=== PATIENT | male | born 1955 | race Caucasian/White ===

== ENCOUNTER 2020-07-09 14:38 | Emergency (ER) | payer BC, SELFPAY ==
--- NOTE | ~2020-07-09 | XR_ITS ---
EXAMINATION: XR chest 1V portable 07/09/2020 15:18 INDICATION: Left-sided chest pain. Hypertension. PROCEDURE: AP portable chest COMPARISON: 08/26/2016 FINDINGS: The lungs are clear. The cardiomediastinal silhouette is within normal limits. There are no pleural effusions. There is no pneumothorax suspected. IMPRESSION: 1: NO ACUTE CARDIOPULMONARY DISEASE. Reviewed, dictated and finalized at location A.
[2020-07-09 15:02] VITALS: BP 195/104; PULSE 65; RESP 16; TEMP 36.9; O2SAT 98
[2020-07-09 15:04] VITALS: PULSE 66
--- NOTE | 2020-07-09 15:06 | ECG_ITS ---
Measurements Intervals Adm[place] Rate: 64 P: 55 [place]: 147 QRS: 11 QRSD: 94 T: 22 QT: 399 QTc: 412 Interpretive Statements SINUS RHYTHM POSSIBLE LEFT ATRIAL ENLARGEMENT DELAYED PRECORDIAL R/S TRANSITION BASELINE ARTIFACT- V5 BORDERLINE ECG Electronically Signed On 07-09-2020 16:11:40 CDT by Gato Jarquin D.O.
[2020-07-09 15:17] LABS: Basophils Percent Auto 0.7 % (0.2-1.2); Eosinophils Absolute Auto 0.2 K/mm3 (0-0.3); Hematocrit 40.9 % (42.0-52.0); Hemoglobin 13.7 g/dL (14.0-18.0); Immature Granulocyte Absolute 0.01 K/mm3 (0.00-0.031); Immature Granulocyte Percent A 0.2 % (0-0.5); Lymphocytes Absolute Auto 1.29 K/mm3 (0.9-3.2); Lymphocytes Percent Auto 30.9 % (18.3-44.2); Mean Corpuscular HGB Conc 33.5 g/dl (32-36); Mean Corpuscular Hemoglobin 30.6 pg (26-34); Mean Corpuscular Volume 91.3 fl (80-100); Mean Platelet Volume 9.7 fl (7.4-10.4); Monocytes Absolute Auto 0.4 K/mm3 (0.1-0.6); Monocytes Percent Auto 10.6 % (2.6-8.5); Neutrophils Absolute Auto 2.2 K/mm3 (1.3-6.7); Neutrophils Percent Auto 52.6 % (45.5-73.1); Platelet Count Result 200 k/mm3 (150-375); Red Blood Count 4.48 M/mm3 (4.6-6.20); Red Cell Distribution Width 12.9 % (11.5-14.5); White Blood Count 4.2 K/mm3 (4.5-10.0)
[2020-07-09 15:25] LABS: Prothrombin Time 12.7 Seconds (11.1-14.7)
[2020-07-09 15:28] LABS: Alanine Aminotransferase 26 U/L (4-50); Albumin Level 4.4 g/dL (3.5-5.1); Alkaline Phosphatase 43 U/L (38-126); Anion Gap 6 mmol/L (8-16); Aspartate Amino Transferase 36 U/L (17-59); Bilirubin,Total 1.1 mg/dL (0.2-1.3); Blood Urea Nitrogen 18 mg/dL (9-20); Carbon Dioxide 28 mmol/L (22-30); Chloride 104 mmol/L (98-107); D Dimer 0.27 ug/mL (<0.48); Estimated CRCL calculation 68 ml/min; Estimated Glomerular Filt Rate > 60; Glucose 101 mg/dL (75-110); Potassium 4.1 mmol/L (3.4-5.0); Sodium 138 mmol/L (137-145)
[2020-07-09 15:36] VITALS: BP 161/86; PULSE 56; RESP 15; O2SAT 97
[2020-07-09 15:39] LABS: NT Pro B Type Natriuretic Pept 108 PG/ML (5-100); Troponin I < 0.012 ng/mL (0.000-0.034)
--- NOTE | 2020-07-09 16:27 | ED.CHESTPAIN ---
HPI - Chest Pain General Chief Complaint: Chest Pain Stated Complaint: intermittent chest pain Time Seen by Provider: 07/09/20 14:48 Source: patient and family Mode of arrival: ambulatory Limitations: no limitations History of Present Illness HPI narrative: 64-year-old with history of hypertension here with complaints of having left-sided chest pain for past few hours. Patient states that he had a similar pain 4 days ago, has seen his primary doctor had a EKG in the office and was scheduled for stress test next week. Patient states that he was mowing the lawn this morning started having pain again in the left side of the chest which was nonradiating. He denies any nausea or vomiting or diaphoresis with the pain. Patient states that it is like a pressure in the left precordial area. MD complaint: chest pain Onset (ago): hour(s) (3) Prior episodes: Yes Onset: during exertion Pain location: left chest Pain radiation: none Severity: moderate Quality: heaviness Relieving factors: rest Exacerbating factors: exertion Treatment prior to arrival: none Risk Factors Coronary artery disease risk factors: hypertension Related Data Home Medications Medication Instructions Recorded Confirmed losartan 50 mg PO DAILY 07/09/20 Allergies Allergy/AdvReac Type Severity Reaction Status Date / Time morphine Allergy Nausea Verified 07/09/20 15:05 Review of Systems Constitutional: Constitutional: Reports as per HPI Eyes: Eyes: Reports no additional eye complaints ENT: Reports system reviewed and no additional complaints, except as documented Cardiovascular: Cardiovascular: Reports as per HPI Respiratory: Respiratory: Reports no additional respiratory complaints Gastrointestinal: Gastrointestinal: Reports no additional gastrointestinal complaints Musculoskeletal: Musculoskeletal: Reports no additional musculoskeletal complaints Neurologic: Reports system reviewed and no additional complaints, except as documented Endocrine: Endocrine: Reports no additional endocrine complaints PMFSH Social History Social History Gender identity (if verbalized by the patient): Male Exam Narrative: Exam Narrative: GENERAL: Well-appearing, well-nourished, and in no acute distress. HEAD: Normocephalic, atraumatic. EYES: PERRLA and EOMI. ENT: Nares clear, no rhinorrhea or epistaxis. Mucous membranes moist. NECK: Supple. CHEST: Clear to auscultation. No respiratory distress. HEART: Regular rate and rhythm. No murmur heard. Normal peripheral pulses. ABDOMEN: Soft, nontender, nondistended, normal active bowel sounds. EXTREMITIES: Normal range of motion. No edema. SKIN: Warm, dry, no rash. NEURO: No focal deficits. Alert and oriented x3. PSYCH: Normal mood and affect. Course Course Emergency Course: Patient presently has no chest pain, will give him aspirin I have reviewed labs with the patient as well as the EKG with a given history of exertional chest pain with no previous negative stress test will admit him to the hospital for further evaluation. I discussed with Kia who agreed to admit the patient. Vital Signs Vital signs: Vital Signs Temperature 36.9 C 07/09/20 15:02 Pulse Rate 65 07/09/20 15:02 Respiratory Rate 16 07/09/20 15:02 Blood Pressure 195/104 H 07/09/20 15:02 Pulse Oximetry 98 07/09/20 15:02 Temperature 36.9 C 07/09/20 15:02 Pulse Rate 56 L 07/09/20 15:36 Respiratory Rate 15 07/09/20 15:36 Blood Pressure 161/86 H 07/09/20 15:36 Pulse Oximetry 97 07/09/20 15:36 MDM - Chest Pain Lab Data Result diagrams: 07/09/20 15:09 07/09/20 15:09 Labs: Lab Results 07/09/20 07/09/20 07/09/20 Range/Units 15:09 15:09 15:09 WBC 4.2 L (4.5-10.0) K/mm3 RBC 4.48 L (4.6-6.20) M/mm3 Hgb 13.7 L (14.0-18.0) g/dL Hct 40.9 L (42.0-52.0) % MCV 91.3 (80-100) fl MCH 30.6 (26-34) pg MCHC 33.5 (32-36) g/dl RDW 12.9 (11.5-14.5
[2020-07-09] MEDS: ASPIRIN 81 MG CHEWABLE TABLET 324 MG PO (16:40)
[2020-07-09 17:14] VITALS: BP 158/88; PULSE 50; RESP 16; O2SAT 98
[2020-07-09 17:24] VITALS: BP 150/94; PULSE 54; RESP 18; O2SAT 98
[2020-07-09 17:59] VITALS: BP 150/94; PULSE 58; RESP 18; O2SAT 99
== END 2020-07-09 18:01 | disposition left against medical advice (07) ==
PROVIDERS: Emergency Provider Family Medicine; PCP Family Medicine
DX: I20.0 Unstable angina (principal); I10 Essential (primary) hypertension; R94.31 Abnormal electrocardiogram [ECG] [EKG]
CPT/HCPCS: 36415; 71045; 80053; 83880; 84484; 85025; 85380; 85610; 93005; 99284; A9270

== ENCOUNTER → 2022-03-14 14:13 | Outpatient (CLI) | payer BC, SELFPAY ==
--- NOTE | ~2022-03-14 | MR_ITS ---
EXAMINATION: MR knee RT wo con DATE: 03/14/2022 15:03 INDICATION: Right knee pain TECHNIQUE: Magnetic resonance imaging (MRI) of the right knee was performed without intravenous contr ast. Sequences included coronal PD-weighted FSE, coronal PD-weighted FS FSE, sagittal T2-weighted FS E, sagittal PD-weighted FS FSE and axial PD weighted fat saturated FSE. COMPARISON: None. FINDINGS: Medial compartment: Complex tear of the posterior horn of the medial meniscus which includes a longitudinal horizontal te ar extending to the inferior articular surface at the inner third of the meniscus and a secondary rad ial oriented tear plane involving the portion meniscus inferior to the horizontal tear at the medial side of the posterior horn. Articular cartilage is normal. Lateral compartment: Lateral meniscus is normal. Articular cartilage is normal. Patellofemoral compartment: Deep chondral fissuring without degenerative subchondral changes at the medial patellar facet. Shallo w chondral ulceration along the medial trochlea. Ligaments and tendons: Anterior and posterior cruciate ligaments are normal. The medial collateral ligament and fibular zoya ateral ligament complex are normal. The extensor mechanism is normal. The visualized medial and later al hamstring tendons as well as the iliotibial band are normal. Fluid: Small right knee joint effusion. No loose osteochondral bodies identified. Osseous/other: Normal marrow signal. No fracture or abnormal marrow replacing process. IMPRESSION: 1. Complex medial meniscal tear. 2. 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 Reviewed, dictated and finalized at location A. IMPRESSION: 1. Complex medial meniscal tear. 2. 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
== END ==
PROVIDERS: Visit Provider Orthopaedic Surgery
DX: M17.11 Unilateral primary osteoarthritis, right knee (principal); S83.231A Complex tear of medial meniscus, current injury, right knee, initial encounter; M25.461 Effusion, right knee
CPT/HCPCS: 73721

== ENCOUNTER 2022-05-07 17:29 | Emergency (ER) | payer BC, SELFPAY ==
--- NOTE | ~2022-05-07 | XR_ITS ---
EXAMINATION: XR wrist RT 2V INDICATION: Right wrist pain after laceration with chain saw TECHNIQUE: Two views of the right wrist are obtained. COMPARISON: None available FINDINGS: There is a dorsal soft tissue laceration of the wrist overlying the distal carpal row on th e lateral view. No definite osseous involvement is identified on this two view examination. The bones and joint spaces appear normal. No radiopaque foreign body is identified. IMPRESSION: 1. Dorsal soft tissue laceration of the wrist without definite underlying osseous involvement. Reviewed, dictated and finalized at location A. IMPRESSION: 1. Dorsal soft tissue laceration of the wrist without definite underlying osseo us involvement.
[2022-05-07 17:33] VITALS: BP 166/115; PULSE 78; RESP 20; O2SAT 99
--- NOTE | 2022-05-07 17:55 | ED.WOUNDLAC ---
HPI - Wound/Laceration General Chief Complaint: Wound/Laceration <Thee Torres APRN - Last Filed: 05/07/22 19:27> Stated Complaint: cut tendon <Thee Torres APRN - Last Filed: 05/07/22 19:27> Time Seen by Provider: 05/07/22 17:43 <Thee Torres APRN - Last Filed: 05/07/22 19:27> History of Present Illness HPI narrative: 66-year-old male presents to the emergency room with complaints of laceration to the right wrist. Patient states that he was cutting down and trees with a chainsaw when it kicked back and cut his wrist. Patient states that he feels some laxity with his wrist, and has to hold his wrist up with his other hand. Patient states he is able to move his fingers without any difficulty. <Thee Torres APRN - Last Filed: 05/07/22 19:27> Related Data Home Medications: Home Medications Medication Instructions Recorded Confirmed losartan 50 mg tablet 50 mg PO DAILY 07/09/20 03/28/22 <Thee Torres APRN - Last Filed: 05/07/22 19:27> Allergies/Adverse Reactions: Allergies Allergy/AdvReac Type Severity Reaction Status Date / Time codeine Allergy Mild nausea Verified 03/28/22 09:00 <Thee Torres APRN - Last Filed: 05/07/22 19:27> Review of Systems Review of Systems: CONSTITUTIONAL: Denies fever, chills, or sweats. EYES: Denies visual changes, redness, or discharge. ENT: Denies rhinorrhea, congestion, sore throat, or otalgia. CARDIOVASCULAR: Denies chest pain, palpitations, or edema. RESPIRATORY: Denies cough or dyspnea. GASTROINTESTINAL: Denies abdominal pain, nausea, vomiting, or diarrhea. GENITOURINARY: Denies dysuria or hematuria. SKIN: Laceration to right wrist MUSCULOSKELETAL: Denies back pain, joint pain, or myalgia. NEUROLOGIC: Denies headache, numbness, dizziness, or weakness. PSYCHIATRIC: Denies anxiety or depression. <Thee Torres APRN - Last Filed: 05/07/22 19:27> [facility] Past Medical History Medical History: Medical History Tear of medial meniscus of right knee <Thee Torres APRN - Last Filed: 05/07/22 19:27> Surgical History Surgical History: Surgical History History of nasal surgery <Thee Torres APRN - Last Filed: 05/07/22 19:27> Family History Family History: Family History Father Hypertension <Thee Torres APRN - Last Filed: 05/07/22 19:27> Social History Social History: Social History Smoking status: Never smoker Alcohol intake: never Additional occupation/education comments: [employer] Gender identity (if verbalized by the patient): Male <Thee Torres APRN - Last Filed: 05/07/22 19:27> Exam Narrative: GENERAL: Well-appearing, well-nourished, no physical limitations, and in no acute distress. HEAD: Normocephalic, atraumatic. EYES: Conjunctivae normal, PERRLA and EOMI. CHEST: Clear to auscultation. No respiratory distress. No wheezes rales or rhonchi. No tenderness. HEART: Regular rate and rhythm. No murmur heard. Normal peripheral pulses. EXTREMITIES: Right wrist: Laceration noted to the dorsal surface, partial laxity of the wrist, patient unable to place the wrist in full extension against gravity SKIN: Right wrist: 4 cm linear laceration to the dorsal surface. Bleeding is controlled. Positive visualization of the radialunate ligament, partially lacerated NEURO: No focal deficits. Alert and oriented x3. MAEW. CN's II-XI intact bilaterally, normal gait PSYCH: Cooperative. Normal mood and affect. <Thee Torres APRN - Last Filed: 05/07/22 19:27> Course SPECIAL DUTY NURSE/PA Physician Supervision For this encounter, I have reviewed the SPECIAL DUTY NURSE documentation, treatment plan and medical decision making: And I have had [id number] time with the patient.
[2022-05-07] MEDS: SODIUM CHLORIDE 0.9% IV 1,000 ML 250 ML IV CONT (18:03)
[2022-05-07] MEDS: fentaNYL CITRATE INJ (*CRX) 100 MCG/2 ML VIAL 50 MCG IV PUSH (18:04)
[2022-05-07 18:58] VITALS: BP 148/78; PULSE 78; RESP 18; O2SAT 99
== END 2022-05-07 19:24 | disposition short-term general hospital (02) ==
PROVIDERS: Emergency Provider Nurse Practitioner Family; PCP Family Medicine
DX: S61.511A Laceration without foreign body of right wrist, initial encounter (principal); S63.301A Traumatic rupture of unspecified ligament of right wrist, initial encounter; W29.3XXA Contact with powered garden and outdoor hand tools and machinery, initial encounter; Y93.H2 Activity, gardening and landscaping
CPT/HCPCS: 73100; 96365; 96375; 99285; A4565; J0690; J3010; J7030

== ENCOUNTER 2023-12-04 01:26 | Day surgery (SDC) | payer BC, SELFPAY ==
[2023-11-06 13:55] VITALS: BMI 26.6
--- NOTE | 2023-12-02 11:01 | SUR.PREOP ---
Patient called regarding upcoming procedure. Reviewed preop instructions, appointment times, and procedure prep.
[2023-12-04 06:17] VITALS: BP 130/88; PULSE 62; RESP 18; TEMP 36.2; O2SAT 100
[2023-12-04] MEDS: LACTATED RINGERS 1,000 ML 150 ML IV CONT (06:30)
--- NOTE | 2023-12-04 07:18 | PM.HPGS ---
History of Present Illness History of Present Illness Consent: Risks, benefits, and alternatives have been discussed and questions answered. Patient agrees to proceed with procedure. Chief complaint: hx colon polyps Narrative: Indra Up is a 67 year old male with colon polyp in 2018 Review of Systems Constitutional: Constitutional: Denies headache(s) and Denies weakness Eyes: Eyes: Denies blurry vision ENT: Reports Normal hearing present, Denies headache(s) and Denies neck pain Cardiovascular: Cardiovascular: Denies chest pain and Denies dyspnea Respiratory: Respiratory: Denies dyspnea Gastrointestinal: Gastrointestinal: Reports no additional gastrointestinal complaints Genitourinary: Genitourinary: Denies dysuria Musculoskeletal: Musculoskeletal: Denies neck pain Integumentary/Breasts: Skin/Breast: Denies dry skin Neurologic: Reports Normal hearing present, Denies headache(s) and Denies weakness Psychiatric: Psychiatric: Denies anxiety Endocrine: Endocrine: Denies change in body appearance Hematologic/Lymphatic: Hematologic/Lymphatic: Denies easy bleeding Allergic/Immunologic: Allergic/Immunologic: Denies urticaria PMF Past Medical History Medical History (Updated 09/19/23 @ 10:26 by Rehan Stephens MD) Chronic constipation Essential (primary) hypertension Personal history of colonic polyps Tear of medial meniscus of right knee Surgical History Surgical History History of nasal surgery Family History Family History Father Hypertension Social History Social History (Updated 09/19/23 @ 09:41 by iLsa Keys MA) Smoking status: Never smoker Alcohol intake: current Drinks per week: 5 Substance use: current Substance use type: marijuana Other substance usage details: edibles Last use: twice a week Living arrangements: with family Occupation/Education: occupation Additional occupation/education comments: [employer] Gender identity (if verbalized by the patient): Male Spiritual care concerns: No Meds Home Medications and Allergies Home Medications Medication Instructions Recorded Confirmed Type losartan 100 mg tablet 100 mg PO DAILY #90 tabs 07/17/23 11/06/23 Rx Allergies Allergy/AdvReac Type Severity Reaction Status Date / Time codeine Allergy Mild nausea Verified 12/04/23 06:16 Vital Signs Vital Signs - 24 hr 12/04/23 06:17 Temperature 97.2 F L Pulse Rate 62 Respiratory Rate 18 Blood Pressure 130/88 Pulse Oximetry 100 Oxygen Delivery Room Air Exam Const: General: comfortable and no acute distress HENMT: Face/Nose/Sinus: Normal nares present Eyes: General: appearance normal, both eyes and all related structures Neck: Neck: no JVD Resp: Auscultation: clear to auscultation bilaterally Cardio: Rate: regular rate Rhythm: regular rhythm GI: Inspection: non-distended GI Palp: Yes Soft to palpation Skin: General skin exam: normal color Neuro: General: gait normal Speech: normal speech Extrem: General: normal to inspection Psych: Mental Status: mental status grossly normal Assessment and Plan Assessment and plan (1) Personal history of colonic polyps: Code(s): Z86.010 - Personal history of colonic polyps Status: Acute Assessment and Plan: colonoscopy
--- NOTE | 2023-12-04 07:25 | P.PNAN_ITS ---
Anes - Initial Pre Proc Eval Procedure: Operation Date: 12/04/23 07:30 Proposed Procedures p Colonoscopy - Damion Mason MD Date/Time: 12/04/23 07:25 Surgeon: Damion Mason MD Pre Op Diagnosis: hx colon polyps Patient Data Age: 67 Gender: M Height: 1.75 m Weight: 81.2 kg Last Vital Signs Temp 97.2 F L 12/04/23 06:17 Pulse 62 12/04/23 06:17 Resp 18 12/04/23 06:17 BP 130/88 12/04/23 06:17 Pulse Ox 100 12/04/23 06:17 O2 Del Method Room Air 12/04/23 06:17 Allergies Allergy/AdvReac Type Severity Reaction Status Date / Time codeine Allergy Mild nausea Verified 12/04/23 06:16 Home Medications Medication Instructions Recorded Confirmed Type losartan 100 mg tablet 100 mg PO DAILY #90 tabs 07/17/23 11/06/23 Rx Patient hx anesthesia problems: none Family hx anesthesia problems: none Results Review: All pre-operative results and documents have been reviewed as part of the pre-o perative evaluation. [facility] Past Medical History Medical History (Updated 09/19/23 @ 10:26 by Rehan Stephens MD) Chronic constipation Essential (primary) hypertension Personal history of colonic polyps Tear of medial meniscus of right knee Surgical History Surgical History History of nasal surgery Family History Family History Father Hypertension Social History Social History (Updated 09/19/23 @ 09:41 by Lisa Keys MA) Smoking status: Never smoker Alcohol intake: current Drinks per week: 5 Substance use: current Substance use type: marijuana Other substance usage details: edibles Last use: twice a week Living arrangements: with family Occupation/Education: occupation Additional occupation/education comments: [employer] Gender identity (if verbalized by the patient): Male Spiritual care concerns: No Anes - Eval Final PreProcedure Day of Procedure 12/04/23 07:25 Patient weight: normal Heart: regular rate and rhythm Lungs: clear to auscultation Airway: Mallampati scale class II Neurological: alert and oriented Last oral intake: >/= 8 hours ASA classification: II Emergent: no Anesthetic plan: proceed Anesthesia type and monitoring: general GIVS and standard monitoring Results Review: All pre-operative results and documents have been reviewed as part of the pre- operative evaluation. Informed Consent: The patient's anesthetic plan and its attendant risks and benefits were discussed with the patient/family/POA. Questions were solicited and answers provided to the satisfaction of the patient/family/POA.
[2023-12-04 07:41] VITALS: BP 86/45; PULSE 54; RESP 13; O2SAT 100
[2023-12-04 07:51] VITALS: BP 93/47; PULSE 53; RESP 13; O2SAT 100
[2023-12-04 08:01] VITALS: BP 109/67; PULSE 61; RESP 16; O2SAT 100
== END 2023-12-04 08:06 | disposition home or self-care (01) ==
PROVIDERS: PCP Family Medicine; Visit Provider Internal Medicine Gastroenterology
PROC: 0DJD8ZZ Inspection of Lower Intestinal Tract, Via Natural or Artificial Opening Endoscopic (ICD-10-PCS; CPT 45378; principal; 2023-12-04 07:30)
DX: Z12.11 Encounter for screening for malignant neoplasm of colon (principal); D12.2 Benign neoplasm of ascending colon; D12.8 Benign neoplasm of rectum; K64.8 Other hemorrhoids; I10 Essential (primary) hypertension; F12.90 Cannabis use, unspecified, uncomplicated
CPT/HCPCS: 45385; 45380; 88305; J2704; J7120